=== PATIENT | male | born 1970 | race Caucasian/White ===

== ENCOUNTER 2020-12-14 13:33 | Emergency (ER) | payer OTHER ==
[~2020-12-14] VITALS: Ht 182.9 cm; Wt 127.0 kg
[~2020-12-14 13:33] MED LIST: IBUPROFEN 600600 M1 PO; LISINOPRIL40 MG PO; NORCO 5-325 TA1 EACH PO; PERCOCET 5-3251 EACH PO; TRAMADOL 50 MG50 MG PO; WELLBUTRIN SR100 MG PO
[2020-12-14 14:38] LABS: ABSOLUTE NEUTROPHILS 5.4 thou/uL (1.4-8.2); BASOPHILS 0.8 % (0.0-2.0); EOSINOPHILS 2.9 % (0.0-3.0); HEMATOCRIT 41.1 % (42.0-52.0); HEMOGLOBIN 14.2 gm/dL (14.0-18.0); LYMPHOCYTES 29.3 % (24.0-44.0); MCH 31.9 pg (26.0-34.0); MCHC 34.6 g/dL (28.0-37.0); MONOCYTES 9.2 % (1.0-8.0); PLATELET COUNT 221 thou/uL (150-400); POLYS 57.8 % (36.0-66.0); RBC 4.47 mil/uL (4.50-6.00); RDW 13.6 % (10.5-14.5); WBC 9.3 thou/uL (4.0-11.0)
[2020-12-14] MEDS ORDERED: PROZAC20 M1 PO (14:38)
[2020-12-14] MEDS ORDERED: MELOXICAM15 MG PO (14:38)
[2020-12-14] MEDS ORDERED: NORCO 10-325 T1 EACH PO (14:39)
[2020-12-14] MEDS ORDERED: PROTONIX40 M3 PO (14:40)
[2020-12-14] MEDS ORDERED: ALPRAZOLAM XR3 MG PO (14:41)
[2020-12-14 14:42] LABS: CALCIUM 9.1 mg/dL (8.5-10.1); CREATININE 1.3 mg/dL (0.7-1.3); POTASSIUM 3.7 mmol/L (3.5-5.1)
[2020-12-14 14:49] LABS: ALBUMIN 3.3 g/dL (3.4-5.0); MAGNESIUM 1.7 mg/dL (1.8-2.4); TOTAL BILIRUBIN 0.2 mg/dL (0.2-1.0); TOTAL PROTEIN 7.7 g/dL (6.4-8.2)
[2020-12-14 15:06] LABS: URINE BILIRUBIN NEGATIVE (Negative); URINE BLOOD NEGATIVE (Negative); URINE CLARITY CLEAR; URINE COLOR YELLOW; URINE GLUCOSE-RANDOM* NEGATIVE (Negative); URINE KETONES NEGATIVE (Negative); URINE LEUKOCYTES-REFLEX NEGATIVE (Negative); URINE NITRITE-REFLEX NEGATIVE (Negative); URINE PROTEIN (DIPSTICK) NEGATIVE (Negative); URINE SPECIFIC GRAVITY 1.015 (1.005-1.035); URINE UROBILINOGEN 0.2 E.U./dl (0.2-1.0)
[2020-12-14] MEDS ORDERED: FLAGYL500 M1 PO (15:33)
[2020-12-14] MEDS ORDERED: ZOFRAN ODT4 MG PO (15:33)
[2020-12-14] MEDS ORDERED: CIPROFLOXACIN500 M1 PO (15:33)
[2020-12-14 16:07] VITALS: BP 141/81
--- NOTE | 2020-12-15 07:17 | EKG ---
[place] [address] [facility] [place] [address] ELECTROCARDIOGRAM REPORT Name: YANEMARCELOPEDRO LUISHAILY CRAWFORD Room #: [facility]#: [id number] Admission: 12/14/20 Attend Phys: Discharge: 12/14/20 Date of : 68 Report #: [id number] [facility] ED Test Date: 2020-12-14 Test Time: 14:18:39 Pat Name: RODOLFO CHE Department: Room: Gender: Molder Hand: JCHAIREZ : 1970 Requested By: Jonathan Cruz Order Number: [id number] MD: Jenaro Kraft Measurements Intervals [place] Rate: 65 P: -26 [place]: 141 QRS: -23 QRSD: 106 T: 1 QT: 390 QTc: 406 Interpretive Statements Sinus rhythm Borderline left axis deviation RSR' in V1 or V2, probably normal variant No previous ECG available for comparison Electronically Signed On 12-15-2020 7:17:34 CDT by Jenaro Kraft [email or web address] <ELECTRONICALLY SIGNED> By: Jenaro Kraft MD, [facility] 12/15/20 0717 1418 1418 Jenaro Kraft MD, FACC /EPI
== END 2020-12-14 16:07 | disposition home or self-care (01) ==
LOC: ER 13:33
PROVIDERS: Emergency Medicine
DX: K52.9 Noninfective gastroenteritis and colitis, unspecified (principal); Z20.822 Contact with and (suspected) exposure to COVID-19; R11.2 Nausea with vomiting, unspecified; R42 Dizziness and giddiness; K21.9 Gastro-esophageal reflux disease without esophagitis; I10 Essential (primary) hypertension; Z79.899 Other long term (current) drug therapy; Z88.0 Allergy status to penicillin